=== PATIENT | male | born 1990 | race Caucasian/White ===

== ENCOUNTER 2019-06-13 12:00 | Emergency (ER) | payer OTHER, SELFPAY ==
[2019-06-13 12:00] VITALS: BP 156/90; PULSE 112; RESP 18; TEMP 36.7
--- NOTE | 2019-06-13 12:31 | DI.RAD.S_ITS ---
PROCEDURE: XR CHEST 1V INDICATIONS: Rapid Heart rate TECHNIQUE: One view of the chest was acquired. COMPARISON: None. FINDINGS: Surgical changes and devices: None. Lungs and pleura: Lungs are clear. No pleural effusions or pneumothorax. Mediastinum: Mediastinal contours appear normal. Heart size is normal. Bones and chest wall: No suspicious bony lesions. Overlying soft tissues appear unremarkable. IMPRESSION: No acute cardiopulmonary disease. Dictated by: Akua Jameson M.D. on 06/13/2019 at 13:33 Approved by: Akua Jameson M.D. on 06/13/2019 at 13:34
--- NOTE | 2019-06-13 12:36 | ED.ARRPALP ---
HPI - Arrhythmia/Palpitations <SARA Turner - Last Filed: 06/13/19 15:04> General Chief Complaint: Arrhythmia/Palpitations Stated Complaint: States HR is all over the place, SOB Time Seen by Provider: 06/13/19 12:02 Source: patient Mode of arrival: Ambulatory Limitations: no limitations History of Present Illness HPI narrative: 28-year-old male presents to the emergency department complaining of dry cough, episodes of shortness of breath, episodes of dizziness, and fatigue for the past few weeks. He was initially seen at the walk-in clinic and his pulse was found to be irregular, patient was sent for further testing. He states he initially had a flu shot 1 month ago and developed a low-grade fever, sinus congestion, and cough. Since then he has had intermittent cold symptoms. However, the past week he has noted increasing shortness of breath during minor exertion such as caring his child around. Patient states that he had an irregular heartbeat when he was a child and wore a Holter monitor for a few weeks, no diagnosis was made at this time. Patient has a history of acid reflux for which she has taken ranitidine for for the past 5+ years. He also reports a recent flight 3 weeks ago to [place], he states the flight was 2 hours in duration. Patient denies any smoking, history of blood clots, history of cardiac issues, and denies taking any hormonal supplements. Patient denies chest pain, chest pressure, vision changes, headache, abdominal pain, nausea, vomiting, diarrhea, fevers at this time, or other concerns. Related Data Home Medications Medication Instructions Recorded Confirmed No Known Home Medications 06/13/19 06/13/19 Allergies Allergy/AdvReac Type Severity Reaction Status Date / Time Sulfa (Sulfonamide Allergy Verified 06/13/19 12:06 Antibiotics) Review of Systems <SARA Turner - Last Filed: 06/13/19 15:04> Review of Systems Narrative: REVIEW OF SYSTEMS: GENERAL: Denies fever or chills. HENT: No head trauma, hearing loss or sore throat. EYES: No loss of vision, double vision, eye pain, or irritation. CARDIOVASCULAR: No chest pain, complains of dizziness, see HPI. RESPIRATORY: Complains of dry cough and episodes of shortness of breath, see HPI. GASTROINTESTINAL: No nausea, vomiting, diarrhea, or constipation. GENITOURINARY: No flank pain or dysuria. MUSCULOSKELETAL: No pain, weakness, or deformities. INTEGUMENTARY: No rash, lesions, or pruritus. NEURO: No numbness, tingling, memory loss, or confusion. PSYCH: No behavior or mood changes. Patient History <SARA Turner - Last Filed: 06/13/19 15:04> Medical History No significant medical problems (Acute) Social History Smoking Status: Never smoker Smoking Status: Never smoker alcohol intake frequency: 0-2 drinks per day Substance Use Type: does not use Exam <SARA Turner - Last Filed: 06/13/19 15:04> Initial Vital Signs Initial Vital Signs: Vital Signs Temperature 98.1 F 06/13/19 12:00 Pulse Rate 112 H 06/13/19 12:00 Respiratory Rate 18 06/13/19 12:00 Blood Pressure 156/90 H 06/13/19 12:00 PHYSICAL EXAMINATION: GENERAL: Well groomed, alert, and cooperative. Answers questions promptly and appropriately. Vital signs noted. HENT: Normocephalic, atraumatic. Ear canals patent. Oral mucosa is pink and moist. EYES: PERRLA, EOMIs, Conjunctiva pink, sclera white, no periorbital swelling. CHEST: Normal to inspection and without deformities. CARDIOVASCULAR: S1 and S2 sounds normal. Regular rate and rhythm, no murmurs, clicks, or bruits. No pedal edema. RESPIRATORY: Normal respiratory rate, trachea midline, airway patent. No stridor, nasal flaring or accessory muscle use. Lungs are clear in all logan without wheeze, rhonchi, or crackles. GASTROINTESTINAL: Bowel sounds normoactive. Abdomen is soft and non-tender. No organomegaly. MUSCULOSKELETAL: Normal gait and coordination. Equal tone and mass bilaterally. EXTREMITIES: CMS intact. Moves all extremities. SKIN: Warm, dry, soft, appropriate color for ethnicity. No lesions, rashes, or wounds. NEURO: Alert and Oriented X 3. Good coordination. No ataxia, or sensory deficits, or cognitive issues. PSYCH: Appropriate affect and mood. <Adriana Coronel MD - Last Filed: 12/18/19 16:29> Initial Vital Signs Initial Vital Signs: Vital Signs Temperature 98.1 F 06/13/19 12:00 Pulse Rate 112 H 06/13/19 12:00 Respiratory Rate 18 06/13/19 12:00 Blood Pressure 156/90 H 06/13/19 12:00 Course <SARA Turner - Last Filed: 06/13/19 15:04> Course Course Narrative: Patient exhibits an elevated heart rate (110-130s sinus tachycardia) when any healthcare providers in the room. His rate normally breath around 80-90 beats per minute, normal sinus rhythm. Whenever and individual walks into the room again elevated as high as 130 with sinus tach. He does not have any increasing symptoms at these times. Patient has continued to have small episodes of dizziness when he turns his head to the side too quickly, this resolves once he focuses on an object. He continues to deny chest pain throughout the emergency department stay. Patient was given crackers and juice per request. Cardiology was paged to assess EKG variants. Orders Ordered: ED Orders 06/13/19 12:05 Complete Blood Count AUTO DIFF Stat Comprehensive Metabolic Panel Stat D Dimer Stat Lipase Stat Troponin & CK Cardiac Panel Stat 06/13/19 12:07 EKG-12 Lead Stat EKG-12 Lead Stat 06/13/19 12:31 XR chest 1V Stat 06/13/19 13:16 EKG-12 Lead Routine Discontinued Medications Sodium Chloride (Normal Saline 0.9%) 1,000 mls @ 1,000 mls/hr IV BOLUS ONE Stop: 06/13/19 13:30 Last Infusion: 06/13/19 13:45 Dose: 0 mls/hr Documented by: Admin: 06/13/19 12:42 Dose: 1,000 mls/hr Documented by: RENETTA Reevaluation(s) Reevaluation #1: Consultations Consultation #1: Patient staffed with Dr. Coronel. Consultation #2: Dr. Coronel consulted with Dr. Whitten from Cardiology who would like to see the patient in the cardiology office within the week. Dr. Whitten requested records to be faxed to this office. A cardiology visit was scheduled for the patient. Vital Signs Vital signs: Vital Signs - 8 hr 06/13/19 12:00 06/13/19 13:01 06/13/19 15:03 Temperature 98.1 F Pulse Rate 112 H 75 85 Respiratory Rate 18 15 10 L Blood Pressure 156/90 H Blood Pressure [Left Arm] 129/70 121/75 Pulse Oximetry 100 100 06/13/19 15:20 Temperature Pulse Rate 95 H Respiratory Rate Blood Pressure 121/75 Blood Pressure [Left Arm] Pulse Oximetry 100 <Adriana Coronel MD - Last Filed: 06/13/19 16:29> Orders Ordered: ED Orders 06/13/19 12:05 Complete Blood Count AUTO DIFF Stat Comprehensive Metabolic Panel Stat D Dimer Stat Lipase Stat Troponin & CK Cardiac Panel Stat 06/13/19 12:07 EKG-12 Lead Stat EKG-12 Lead Stat 06/13/19 12:31 XR chest 1V Stat 06/13/19 13:16 EKG-12 Lead Routine Discontinued Medications Sodium Chloride (Normal Saline 0.9%) 1,000 mls @ 1,000 mls/hr IV BOLUS ONE Stop: 06/13/19 13:30 Last Infusion: 06/13/19 13:45 Dose: 0 mls/hr Documented by: JESUSARRINGTO Admin: 06/13/19 12:42 Dose: 1,000 mls/hr Documented by: RENETTA Vital Signs Vital signs: Vital Signs - 8 hr 06/13/19 12:00 06/13/19 13:01 06/13/19 15:03 Temperature 98.1 F Pulse Rate 112 H 75 85 Respiratory Rate 18 15 10 L Blood Pressure 156/90 H Blood Pressure [Left Arm] 129/70 121/75 Pulse Oximetry 100 100 06/13/19 15:20 Temperature Pulse Rate 95 H Respiratory Rate Blood Pressure 121/75 Blood Pressure [Left Arm] Pulse Oximetry 100 MDM - Arrhythmia/Palpitations <SARA Turner - Last Filed: 06/13/19 15:04> Medical Records Attestation: I reviewed the patient's medical records. Lab Data Attestation: I reviewed the patient's lab results. Result diagrams: 06/13/19 12:05 06/13/19 12:05 Labs: Lab Results 06/13/19 06/13/19 06/13/19 Range/Units 12:05 12:05 12:05 WBC 5.9 (4.5-11.0) X10^3/uL RBC 5.07 (4.5-5.9) X10^6/uL Hgb 15.8 (13.5-17.5) g/dL Hct 44.8 (41-53) % MCV 88.4 (80-100) fL MCH 31.1 (26-34) PG MCHC 35.2 (30-36) % RDW 13.0 (11.6-14.8) % Plt Count 199 (150-400) X10^3/uL Neut % (Auto) 52.3 (50-75) % Lymph % (Auto) 37.7 (25-40) % [place] % (Auto) 7.8 (3-14) % Eos % (Auto) 1.4 L (2-4) % Baso % (Auto) 0.8 (0-2) % Neut # (Auto) 3100 (1969-7625) /uL Lymph # (Auto) 2200 (5979-7559) /uL [place] # (Auto) 500 (0-900) /uL Eos # (Auto) 100 (0-450) /uL Baso # (Auto) 0 (0-100) /uL D-Dimer < 200 (<230) ng/mL Sodium 144 (137-145) mmol/L Potassium 3.6 (3.4-5.1) mmol/L Chloride 104 (98-107) mmol/L Carbon Dioxide 28 (22-32) mmol/L BUN 11 (9-20) mg/dL Creatinine 0.90 (0.66-1.25) mg/dL Estimated GFR > 60.0 (>60) mL/min BUN/Creatinine Ratio 12.2 (6-22) Glucose 102 H (70-100) mg/dL Calcium 10.3 H (8.4-10.2) mg/dL Total Bilirubin 1.0 (0.2-1.3) mg/dL AST 29 (17-59) IU/L ALT 25 (<50) IU/L Alkaline Phosphatase 54 (38-126) U/L Total Creatine Kinase 115 (55-170) U/L CK-MB (CK-2) 0.93 (<2.37) ng/mL CK-MB (CK-2) Rel Index 0.8 L (1.5-5.0) % Troponin I < 0.012 (0.01-0.034) ng/mL Total Protein 8.8 H (6.3-8.2) g/dL Albumin 5.4 H (3.5-5.0) g/dL Globulin 3.4 (1.7-4.1) g/dL Albumin/Globulin Ratio 1.6 (1.0-2.8) Lipase 80 (23-300) U/L Imaging Data Chest x-ray: Radiologist's impression: [address] [address] XRay Report Signed Patient: Sha Velasco JMR#: [id number] : 1990Acct:[id number] Age/Sex: 28 / MDate of Service: 06/13/19 Loc: ED Accession Number: [id number] Procedure: XR chest 1V Ordering Provider: Melanie Kilgore PROCEDURE: XR CHEST 1V INDICATIONS: Rapid Heart rate TECHNIQUE: One view of the chest was acquired. COMPARISON: None. FINDINGS: Surgical changes and devices: None. Lungs and pleura: Lungs are clear. No pleural effusions or pneumothorax. Mediastinum: Mediastinal contours appear normal. Heart size is normal. Bones and chest wall: No suspicious bony lesions. Overlying soft tissues appear unremarkable. IMPRESSION: No acute cardiopulmonary disease. Dictated by: Akua Jameson M.D. on 06/13/2019 at 13:33 Approved by: Akua Jameson M.D. on 06/13/2019 at 13:34 ECG Data Interpretation: EKG #1: Performed at 12:07; sinus tachycardia, rate 115, UT interval 132, QTC 400. Alternating QRS in a 1:1 pattern in Leads I, III, AVL, V4, V5, and V6. Pattern appears to have a QRS with 2mm of positive and 2mm of negative deflection, followed by a QRS with 5mm of positive deflection. NO Delta waves. T-wave inversion in V1. No ST elevation or ST depression. No ectopy. Significant artifact noted. EKG findings were reviewed by Dr. Coronel. EKG # 2: Performed at 13:16; sinus rhythm, rate 85, pr interval 159, QTC 422. Alternating QRS patterns seen in lead 1, lead 3, aVL, and AVF. T-wave inversion noted V1 abd V2. No ectopy. No ST elevation or ST depression. EKG findings were reviewed by Dr. Coronel. [facility] Narrative Medical decision making narrative: This is a 28-year-old male presented emergency department for episodes of shortness of breath and dizziness. Irregular electrical activity was found on EKG. This is less likely AFib as P waves are present, less likely will Parkinson's white due to lack of delta wave, no Hen[place] wave present. Less likely [place] due to lack of elevated troponin, no elevation/depression of ST segments. Differential also includes reactive airway disease (less likely due to intermittent symptoms and post viral cough/inflammation, less likely due to EKG findings). After consultation with amusement ride inspector, an appointment was made for the patient to follow up with amusement ride inspector within the week. He agreed to this plan of care. Extensive counseling was provided to the patient about return to the emergency department for any new or worsening symptoms such as increasing dizziness, chest pain, shortness of breath, or other concerns. Patient verbalized understanding of the importance of this. Dr. Coronel agreed with plan of care. Records or faxed to Dr. Whitten's office per request. <Adriana Coronel MD - Last Filed: 06/13/19 16:29> Lab Data Labs: Lab Results 06/13/19 06/13/19 06/13/19 Range/Units 12:05 12:05 12:05 WBC 5.9 (4.5-11.0) X10^3/uL RBC 5.07 (4.5-5.9) X10^6/uL Hgb 15.8 (13.5-17.5) g/dL Hct 44.8 (41-53) % MCV 88.4 (80-100) fL MCH 31.1 (26-34) PG MCHC 35.2 (30-36) % RDW 13.0 (11.6-14.8) % Plt Count 199 (150-400) X10^3/uL Neut % (Auto) 52.3 (50-75) % Lymph % (Auto) 37.7 (25-40) % [place] % (Auto) 7.8 (3-14) % Eos % (Auto) 1.4 L (2-4) % Baso % (Auto) 0.8 (0-2) % Neut # (Auto) 3100 (5405-9313) /uL Lymph # (Auto) 2200 (7020-6405) /uL [place] # (Auto) 500 (0-900) /uL Eos # (Auto) 100 (0-450) /uL Baso # (Auto) 0 (0-100) /uL D-Dimer < 200 (<230) ng/mL Sodium 144 (137-145) mmol/L Potassium 3.6 (3.4-5.1) mmol/L Chloride 104 (98-107) mmol/L Carbon Dioxide 28 (22-32) mmol/L BUN 11 (9-20) mg/dL Creatinine 0.90 (0.66-1.25) mg/dL Estimated GFR > 60.0 (>60) mL/min BUN/Creatinine Ratio 12.2 (6-22) Glucose 102 H (70-100) mg/dL Calcium 10.3 H (8.4-10.2) mg/dL Total Bilirubin 1.0 (0.2-1.3) mg/dL AST 29 (17-59) IU/L ALT 25 (<50) IU/L Alkaline Phosphatase 54 (38-126) U/L Total Creatine Kinase 115 (55-170) U/L CK-MB (CK-2) 0.93 (<2.37) ng/mL CK-MB (CK-2) Rel Index 0.8 L (1.5-5.0) % Troponin I < 0.012 (0.01-0.034) ng/mL Total Protein 8.8 H (6.3-8.2) g/dL Albumin 5.4 H (3.5-5.0) g/dL Globulin 3.4 (1.7-4.1) g/dL Albumin/Globulin Ratio 1.6 (1.0-2.8) Lipase 80 (23-300) U/L Discharge Plan Departure Patient Disposition: Home Clinical Impression: Pre-excitation syndrome, Pre-syncope Discharge Date/Time: 06/13/19 15:21 Instructions: DI for Arrhythmias Activity Restrictions/Additional Instructions: Thank you for entrusting me with your care today. As discussed, your EKG shows some electrical changes and your labs and chest x-ray are non-remarkable. After consultation with the amusement ride inspector, it is recommended that you be seen in the office within the week for further evaluation. You have an appointment scheduled at 3:15pm on June 21 at [facility] with Dr. Whitten (Office phone: [phone]). Please return emergency department if you experience any new or worsening symptoms such as chest pain, shortness of breath, worsening dizziness, syncope, palpitations or any others concerns. Prescriptions: No Action No Known Home Medications RF: 0
[2019-06-13 12:41] LABS: Add Manual Diff / Slide Review NO; Basophils Absolute Auto 0 /uL (0-100); Basophils Percent Auto 0.8 % (0-2); Eosinophils Absolute Auto 100 /uL (0-450); Eosinophils Percent Auto 1.4 % (2-4); Hematocrit 44.8 % (41-53); Hemoglobin 15.8 g/dL (13.5-17.5); Lymphocytes Absolute Auto 2200 /uL (1100-4500); Lymphocytes Percent Auto 37.7 % (25-40); Mean Corpuscular HGB Conc 35.2 % (30-36); Mean Corpuscular Hemoglobin 31.1 PG (26-34); Mean Corpuscular Volume 88.4 fL (80-100); Monocytes Absolute Auto 500 /uL (0-900); Monocytes Percent Auto 7.8 % (3-14); Neutrophils Absolute Auto 3100 /uL (1500-7000); Neutrophils Percent Auto 52.3 % (50-75); Platelet Count 199 X10^3/uL (150-400); Red Blood Cell Count 5.07 X10^6/uL (4.5-5.9); White Blood Cell Count 5.9 X10^3/uL (4.5-11.0)
[2019-06-13] MEDS: SODIUM CHLORIDE 0.9% 1,000 ML 1000 ML IV (12:42)
[2019-06-13 12:48] LABS: D Dimer < 200 ng/mL (<230)
[2019-06-13 12:50] LABS: Alanine Aminotransferase 25 IU/L (<50); Albumin 5.4 g/dL (3.5-5.0); Albumin Globulin Ratio 1.6 (1.0-2.8); Alkaline Phosphatase 54 U/L (38-126); Aspartate Aminotransferase 29 IU/L (17-59); BUN Creatinine Ratio 12.2 (6-22); Blood Urea Nitrogen 11 mg/dL (9-20); Calcium 10.3 mg/dL (8.4-10.2); Carbon Dioxide 28 mmol/L (22-32); Chloride 104 mmol/L (98-107); Creatine Kinase 115 U/L (55-170); Estimated Glomerular Filt Rate > 60.0 mL/min (>60); Globulin 3.4 g/dL (1.7-4.1); Glucose 102 mg/dL (70-100); HEMOLYSIS < 15 (0-50); Lipase 80 U/L (23-300); Potassium 3.6 mmol/L (3.4-5.1); Sodium 144 mmol/L (137-145); Total Protein 8.8 g/dL (6.3-8.2)
[2019-06-13 13:00] LABS: Troponin I < 0.012 ng/mL (0.01-0.034)
[2019-06-13 13:01] VITALS: BP 129/70; PULSE 75; RESP 15; O2SAT 100
[2019-06-13 13:08] LABS: CKMB % Relative Index 0.8 % (1.5-5.0); Creatine Kinase MB 0.93 ng/mL (<2.37)
[2019-06-13 15:03] VITALS: BP 121/75; PULSE 85; RESP 10; O2SAT 100
[2019-06-13 15:20] VITALS: BP 121/75; PULSE 95; O2SAT 100
== END 2019-06-13 15:21 | disposition home or self-care (01) ==
PROVIDERS: Emergency Provider Nurse Practitioner
DX: I45.6 Pre-excitation syndrome (principal); R55 Syncope and collapse
CPT/HCPCS: 71045; 80053; 82550; 82553; 83690; 84484; 85025; 85379; 93005; 93010; 96360; 99284; 99285